=== PATIENT | female | born 1995 | race Caucasian/White ===

== ENCOUNTER 2020-06-16 06:07 | Inpatient (IN) ==
[2020-06-16] MEDS ORDERED: Azithromycin 500 MG in 0.9 % Sodium Chloride 250 ML IVPB ONE (06:09)
[2020-06-16] MEDS ORDERED: Famotidine 20 MG/2 ML VIAL IVP PRN (06:09)
[2020-06-16] MEDS ORDERED: Metoclopramide 10 MG/2 ML VIAL IVP PRN (06:09)
[2020-06-16] MEDS ORDERED: Lidocaine 1% 20 ML MDV INFILT PRN (06:09)
[2020-06-16] MEDS ORDERED: Naloxone 0.4 MG/ML INJ IVP PRN (06:09)
[2020-06-16] MEDS ORDERED: *HR* FentaNYL (PF) 100 MCG/2 ML VIAL IVP PRN (06:09)
[2020-06-16] MEDS ORDERED: miSOPROStoL 25 MCG TABLET PO PRN (06:09)
[2020-06-16] MEDS ORDERED: Ondansetron 4 MG/2 ML VIAL IVP PRN (06:09)
[2020-06-16] MEDS ORDERED: D5% in 0.45% NACL 1,000 ML IVC SCH (06:15)
[2020-06-16 07:05] LABS: Basophils % 0.6 %; Eosinophils # 0.1 K/mcL (0.0-0.6); Eosinophils % 1.4 %; Hematocrit 35.1 % (35.3-44.9); Hemoglobin 11.2 g/dL (11.5-15.4); Lymphocytes # 1.8 K/mcL (0.6-4.6); Lymphocytes % 24.7 %; Mean Corpuscular HGB Conc 31.9 g/dL (31.6-35.5); Mean Corpuscular Hemoglobin 29.6 pg (28.0-33.3); Mean Corpuscular Volume 92.6 fL (83.0-100.0); Mean Platelet Volume 9.7 fL (9.4-12.4); Monocytes # 0.5 K/mcL (0.0-1.3); Monocytes % 7.4 %; Neutrophils # 4.7 K/mcL (1.6-8.9); Platelet Count 187 K/mcL (140-400); Red Blood Count 3.79 M/mcL (3.82-4.97); Red Cell Distribution Width 14.1 % (11.5-14.5); Segmented Neutrophils % 64.9 %; White Blood Count 7.2 K/mcL (4.3-11.1)
[2020-06-16 07:22] LABS: Amphetamine Screen,Urine Negative ng/mL (Cutoff=1000); Barbiturate Screen,Urine Negative ng/mL (Cutoff=200)
[2020-06-16 07:23] LABS: Benzodiazepines Screen,Urine Negative ng/mL (Cutoff=300); Cannabinoid Screen,Urine Negative ng/mL (Cutoff = 50); Cocaine Screen,Urine Negative ng/mL (Cutoff= 300); Opiate Screen,Urine Negative ng/mL (Cutoff=300); Phencyclidine Screen,Urine Negative ng/mL (Cutoff=25)
[2020-06-16] MEDS: Ringers Solution, Lactated 1,000 ML IVC SCH ×3 (07:52→20:23)
[2020-06-16] MEDS ORDERED: Oxytocin 20 units/ LR 1000 mL 20 UNIT/1,000 ML BAG IVC SCH (12:15)
[2020-06-16] MEDS ORDERED: *HR* FentaNYL (PF) 100 MCG/2 ML VIAL ONE (17:40)
[2020-06-16] MEDS ORDERED: Ropivacaine/PF 0.2% 20 ML VIAL ONE (17:41)
[2020-06-16] MEDS: Epidural Premix (fent/bupiv) 110 ML EP ONE (18:11)
[2020-06-17] MEDS ORDERED: Epidural Premix (fent/bupiv) 110 ML EP ONE (00:20)
[2020-06-17] MEDS: Epidural Premix (fent/bupiv) 110 ML EP ONE (00:21)
[2020-06-17] MEDS ORDERED: Oxytocin 20 units/ LR 1000 mL 20 UNIT/1,000 ML BAG IVC ONE (03:59)
[2020-06-17] MEDS ORDERED: *HR* HYDROcodone/Acet 5/325 mg TABLET PO PRN (04:07)
[2020-06-17] MEDS ORDERED: Benzocaine/Menthol 56 GM AEROSOL SPRAY TP PRN (04:07)
[2020-06-17] MEDS ORDERED: Lanolin 7 G OINT...G. TP PRN (04:07)
[2020-06-17] MEDS ORDERED: Acetaminophen 325 MG TABLET PO PRN (04:07)
[2020-06-17] MEDS ORDERED: Oxytocin 20 units/ LR 1000 mL 20 UNIT/1,000 ML BAG IVC SCH (04:15)
[2020-06-17] MEDS: Ibuprofen 600 MG TABLET PO PRN (07:35)
[2020-06-17] MEDS: Prenatal Vit/FA 1 EACH TABLET PO SCH (08:22)
[2020-06-18] MEDS: Ibuprofen 600 MG TABLET PO PRN (03:53)
[2020-06-18 08:05] VITALS: BP 99/64
[2020-06-18] MEDS: Prenatal Vit/FA 1 EACH TABLET PO SCH (08:44)
== END 2020-06-18 10:45 | disposition home or self-care (01) | DRG 807 ==
LOC: 1NENULAB 06:07 → 1NENUOBS 06-17 06:08
PROVIDERS: ADMIT Advanced Practice Midwife; ATTEND Advanced Practice Midwife